=== PATIENT | male | born 1955 | race Caucasian/White ===

== ENCOUNTER 2018-05-23 04:56 | Emergency (ER) | payer OTHER ==
[~2018-05-23] VITALS: Ht 190.5 cm; Wt 88.9 kg
[2018-05-23 05:09] VITALS: BP 119/71
== END 2018-05-23 05:33 | disposition home or self-care (01) ==
LOC: ER 04:56
DX: F41.9 Anxiety disorder, unspecified (principal)

== ENCOUNTER 2024-04-17 21:09 | Emergency (ER) | payer OTHER ==
[~2024-04-17] VITALS: Ht 185.4 cm; Wt 89.8 kg
[2024-04-17] MEDS: LIDOCAINE 1% INJ 50 ML MDV IJ ONE (21:30)
[2024-04-17] MEDS: BACI/NEOM/POLY B OINT PKT 1 UDPKT PACKET TP ONE (21:30)
[2024-04-17] MEDS: TDAP [DIPH/PERTUSSIS/TET] 0.5 ML VIAL IM ONE (21:30)
[2024-04-17] MEDS ORDERED: TDAP [DIPH/PERTUSSIS/TET] 0.5 ML VIAL IM ONE (21:44)
[2024-04-17 21:45] LABS: BASOPHILS % (AUTO) 0.1 % (0.0-2.0); HEMATOCRIT 42 % (39-51); HEMOGLOBIN 14.2 g/dL (13.5-17.5); LYMPHOCYTES # (AUTO) 0.4 K/uL (0.8-4.8); LYMPHOCYTES % (AUTO) 3.3 % (20.0-44.0); MEAN CORPUSCULAR HEMOGLOBIN 29 PG (26.0-33.0); MEAN CORPUSCULAR HGB CONC 34 g/dl (31.0-36.0); MEAN CORPUSCULAR VOLUME 86 fL (80-96); MONOCYTES % (AUTO) 7.4 % (2.0-12.0); NEUTROPHILS # (AUTO) 11.8 K/uL (1.8-8.9); NEUTROPHILS % (AUTO) 89.2 % (43.0-81.0); PLATELET COUNT (AUTO) 134 K/uL (150-450); RED BLOOD CELL COUNT(AUTO) 4.86 MIL/uL (4.5-6.0); RED CELL DISTRIBUTION WIDTH 14.5 % (11.5-15.0); WHITE BLOOD COUNT (AUTO) 13.3 K/uL (4.3-11.0)
[2024-04-17 21:55] LABS: CARBON DIOXIDE 24 mmol/L (21-32); CHLORIDE 106 mmol/L (98-107); GLUCOSE 207 mg/dL (74-106); SODIUM SERUM 142 mmol/L (136-145); UREA NITROGEN, BLOOD 28 mg/dL (7-18)
[2024-04-17 22:17] LABS: ALANINE AMINOTRANSFERASE 36 U/L (12-78); ALBUMIN 4.1 g/dL (3.4-5.0); ALCOHOL, BLOOD < 3 mg/dL (0-10); ALKALINE PHOSPHATASE 71 U/L (46-116); ASPARTATE AMINOTRANSFERASE 33 U/L (15-37); BILIRUBIN,DIRECT 0.3 mg/dL (0.0-0.2); BILIRUBIN,TOTAL 1.6 mg/dL (0.2-1.0); TOTAL PROTEIN, SERUM 7.4 g/dL (6.4-8.2)
[2024-04-17 22:25] LABS: ACETAMINOPHEN <10 ug/ml (10-30); SALICYLATE 1.3 mg/dL (2.8-20.0)
[2024-04-17] MEDS: LORAZEPAM 1 MG TABLET PO ONE (23:30)
[2024-04-17] MEDS: IV NS 0.9% 1,000 ML BAG IV ONE (23:30)
[2024-04-18] MEDS ORDERED: LORAZEPAM 1 MG TABLET ONE (00:40)
[2024-04-18] MEDS ORDERED: LORA-259 PO (02:28)
[2024-04-18 02:35] LABS: APPEARANCE,URINE CLEAR (CLEAR); BILIRUBIN,URINE 2+ (NEGATIVE); BLOOD, URINE 2+ Ery/uL (NEGATIVE); COLOR,URINE DARK YELLOW (YELLOW); KETONES,URINE TRACE mg/dL (NEGATIVE); LEUKOCYTE ESTERASE ,URINE NEGATIVE (NEGATIVE); NITRITE, URINE NEGATIVE (NEGATIVE); PROTEIN,URINE NEGATIVE (NEGATIVE); UGLUCOSE NEGATIVE (NEGATIVE); UROBILINOGEN,URINE 0.2 EU/dL (0.2)
[2024-04-18 02:43] LABS: ADD URINE CULTURE NO; BACTERIA,URINE Rare /HPF (None Seen); SQUAMOUS EPITHELIAL CELL,UR Few /HPF (None Seen); WBC,URINE 0-2 /HPF (0-3)
[2024-04-18 02:52] LABS: AMPHETAMINE, URINE NEGATIVE (NEGATIVE); BARBITURATE, URINE NEGATIVE (NEGATIVE); BENZODIAZEPINE, URINE NEGATIVE (NEGATIVE); CANNABINOID, URINE NEGATIVE (NEGATIVE); COCCAINE, URINE NEGATIVE (NEGATIVE); OPIATE, URINE NEGATIVE (NEGATIVE); PHENCYCLIDINE SCREEN,URINE NEGATIVE (NEGATIVE)
[2024-04-18 06:28] VITALS: BP 116/70; TEMP 98.2; O2SAT 98
== END 2024-04-18 06:29 | disposition home or self-care (01) ==
LOC: ER 21:11
DX: S61.511A Laceration without foreign body of right wrist, initial encounter (principal); S61.512A Laceration without foreign body of left wrist, initial encounter; F32.9 Major depressive disorder, single episode, unspecified; N28.9 Disorder of kidney and ureter, unspecified; R73.9 Hyperglycemia, unspecified; Z20.822 Contact with and (suspected) exposure to COVID-19; X78.1XXA Intentional self-harm by knife, initial encounter; Y93.89 Activity, other specified; Y92.89 Other specified places as the place of occurrence of the external cause; Y99.8 Other external cause status
CPT/HCPCS: 12002; 36415; 80048; 80076; 80143; 80307; 80320; 81001; 85025; 87426; 90471; 90715; 96360; 99285; J7030; G0480